=== PATIENT | male | born 1945 ===

== ENCOUNTER 2016-12-31 22:25 | Inpatient (IN) | payer BC ==
--- NOTE | 2016-12-31 22:43 | ED PDOC ---
Arrival/HPI - General Chief Complaint: Chest Pain Time Seen by Provider: 12/31/16 22:38 Historian: Patient - History of Present Illness Narrative History of Present Illness (Text): 12/31/16 22:43 Stephanie Mac is a 71 year old male, whose past medical history includes hypothyroidism, who presents to the Emergency department accompanied by family complaining of chest pain. Patient states he was sitting down reading at home 30 minutes prior to arrival when he began experiencing mid-sternal chest pain radiating to his back and bilateral arms. Patient denies any fever, chills, shortness of breath, nausea, vomiting, diarrhea, urinary symptoms, back pain, neck pain, headache, dizziness, or any other complaints. Time/Duration: 1/2 hour Symptom Onset: Sudden Symptom Course: Unchanged Activities at Onset: Rest, Light Context: Home Past Medical History - Provider Review Nursing Documentation Reviewed: Yes - Infectious Disease Hx of Infectious Diseases: None - Cardiac Hx Cardiac Disorders: No - Pulmonary Hx Respiratory Disorders: No - Neurological Hx Neurological Disorder: No - HEENT Hx HEENT Disorder: No - Renal Hx Renal Disorder: No - Endocrine/Metabolic Hx Hypothyroidism: Yes - Hematological/Oncological Hx Blood Disorders: No - Integumentary Hx Dermatological Disorder: No - Musculoskeletal/Rheumatological Hx Musculoskeletal Disorders: No - Gastrointestinal Hx Gastroesophageal Reflux: Yes - Genitourinary/Gynecological Hx Genitourinary Disorders: No - Psychiatric Hx Psychophysiologic Disorder: No Hx Substance Use: No - Anesthesia Hx Anesthesia: No Hx Anesthesia Reactions: No Hx Malignant Hyperthermia: No Family/Social History - Physician Review Nursing Documentation Reviewed: Yes Family/Social History: No Known Family HX Smoking Status: Unknown If Ever Smoked Hx Alcohol Use: No Hx Substance Use: No Allergies/Home Meds Allergies/Adverse Reactions: Allergies No Known Allergies Allergy (Verified 12/31/16 22:30) Review of Systems - Physician Review All systems were reviewed & negative as marked: Yes - Review of Systems Constitutional: Normal. absent: Fevers Eyes: Normal ENT: Normal Respiratory: Normal. absent: SOB, Cough Cardiovascular: Chest Pain Gastrointestinal: Normal. absent: Abdominal Pain, Constipation, Diarrhea, Nausea, Vomiting Genitourinary Male: Normal. absent: Dysuria, Frequency, Hematuria, Urinary Output Changes Musculoskeletal: Normal. absent: Back Pain, Neck Pain Skin: Normal. absent: Rash Neurological: Normal. absent: Headache, Dizziness Endocrine: Diaphoresis Hemo/Lymphatic: Normal Psychiatric: Normal Physical Exam Vital Signs Reviewed: Yes Vital Signs Temp Pulse Resp BP Pulse Ox 01/01/17 02:08 56 L 18 137/80 95 01/01/17 00:46 66 18 148/78 99 12/31/16 22:25 98.4 F 64 15 186/84 H 97 Temperature: Afebrile Blood Pressure: Normal Pulse: Regular Respiratory Rate: Normal Appearance: Positive for: Well-Appearing, Non-Toxic, Comfortable Pain Distress: None Mental Status: Positive for: Alert and Oriented X 3 - Systems Exam Head: Present: Atraumatic, Normocephalic Pupils: Present: PERRL Extroacular Muscles: Present: EOMI Conjunctiva: Present: Normal Mouth: Present: Moist Mucous Membranes Neck: Present: Normal Range of Motion Respiratory/Chest: Present: Clear to Auscultation, Good Air Exchange. No: Respiratory Distress, Accessory Muscle Use Cardiovascular: Present: Regular Rate and Rhythm, Normal S1, S2. No: Murmurs Abdomen: Present: Normal Bowel Sounds. No: Tenderness, Distention, Peritoneal Signs Back: Present: Normal Inspection Upper Extremity: Present: Normal Inspection. No: Cyanosis, Edema Lower Extremity: Present: Normal Inspection. No: Edema Neurological: Present: GCS=15, CN II-XII Intact, Speech Normal Skin: Present: Warm, Dry, Normal Color. No: Rashes Psychiatric: Present: Alert, Oriented x 3, Normal Insight, Normal Concentration Medical Decision Making ED Course and Treatment: 12/31/16 22:43 Impression: 71 year old male complaining of chest pain 30 minutes prior to arrival. Plan: -- EKG -- Chest X-ray -- Labs, cardiac enzymes -- Reassess and disposition Prior Visits: Notes and results from previous visits were reviewed. Progress Notes: Reviewed EKG, sinus bradycardia at 53 bpm. No acute changes. 01/01/17 00:56 Reviewed radiology, Chest X-ray shows: Heart and mediastinum: The heart is mildly enlarged. Aorta is mildly uncoiled. Vascularity:There is mild vascular congestion. Lungs: There are patchy opacities at the lung bases left greater than right Pleural spaces: There no definite effusions. Bony structures: Bony structures are mildly osteopenic the degenerative change IMPRESSION: Mild cardiomegaly and vascular congestion; patchy opacities at the lung bases atelectasis and/or infiltrate. 04/06/17 02:[address] Perry, who is aware and agrees with plan. Accepts pt in to her service. Pt will go to Telemetry observation for chest pain. Pt is no acute distress. Discussed results plan and hospital admission plan with pt, who is aware and verbalizes understanding. - Lab Interpretations Lab Results: 01/01/17 10:57 01/01/17 09:00 Lab Results 01/01/17 11:19: POC Glucose (mg/dL) 89 01/01/17 10:57: WBC 6.8 D, RBC 4.67, Hgb 15.0, Hct 41.0 L, MCV 87.8, MCH 32.1, MCHC 36.6, RDW 12.5, Plt Count 268, MPV 8.7, Hemoglobin A1c 5.6, Troponin I 0.69 H* D, Triglycerides 72, Cholesterol 190, LDL Cholesterol Direct 114, HDL Cholesterol 41 01/01/17 09:00: Sodium 136, Potassium 4.6, Chloride 99, Carbon Dioxide 27, Anion Gap 15, BUN 12, Creatinine 0.7, Est GFR ( Amer) > 60, Est GFR (Non- Af Amer) > 60, Random Glucose 144 H, Calcium 9.2, Troponin I 0.92 H* D 12/31/16 22:46: WBC 9.1, RBC 4.39, Hgb 14.1, Hct 38.5 L, MCV 87.7, MCH 32.1, MCHC 36.6, RDW 12.4, Plt Count 306, MPV 9.2, PT 10.9, INR 1.01, APTT 23.9, Sodium 135, Potassium 3.2 L, Chloride 96 L, Carbon Dioxide 27, Anion Gap 15, BUN 16, Creatinine 0.8, Est GFR ( Amer) > 60, Est GFR (Non-Af Amer) > 60 , Random Glucose 105, Calcium 9.2, Total Bilirubin 0.8, AST 29, ALT 31, Alkaline Phosphatase 47, Lactate Dehydrogenase 465, Total Creatine Kinase 160, Troponin I < 0.01, Total Protein 7.6, Albumin 4.0, Globulin 3.6, Albumin/ Globulin Ratio 1.1 I have reviewed the lab results: Yes - RAD Interpretation Radiology Orders: 12/31/16 23:21 CHEST PORTABLE [RAD] Stat Seed Analyst: ED Physician, Radiologist - EKG Interpretation Interpreted by ED Physician: Yes Type: 12 lead EKG - Medication Orders Current Medication Orders: Aspirin (Ecotrin) 81 mg PO DAILY [facility] Last Admin: 01/02/17 10:07 Dose: 81 MG Atorvastatin Calcium (Lipitor) 40 mg PO DIN [facility] Last Admin: 01/01/17 20:09 Dose: 40 MG Levothyroxine Sodium (Synthroid) 50 mcg PO ACB [facility] Last Admin: 01/02/17 07:25 Dose: 50 MCG Lisinopril (Zestril) 5 mg PO DAILY [facility] Last Admin: 01/02/17 10:07 Dose: 5 MG MAR Pulse and Blood Pressure Document 01/02/17 10:07 RDS (Rec: 01/02/17 10:10 RDS [id number]) Pulse Pulse Rate (60-90) 63 Blood Pressure Blood Pressure (100/60-150/90) 130/60 Metoprolol Succinate (Toprol Xl) 25 mg PO BRK [facility] Last Admin: 01/02/17 07:25 Dose: 25 MG MAR Pulse and Blood Pressure Document 01/02/17 07:25 RDS (Rec: 01/02/17 07:26 RDS [id number]) Pulse Pulse Rate (60-90) 61 Blood Pressure Blood Pressure (100/60-150/90) 106/58 Pantoprazole Sodium (Protonix Ec Tab) 40 mg PO 0630 [facility] Last Admin: 01/02/17 05:53 Dose: 40 MG Discontinued Medications Aspirin (Aspirin) 325 mg PO ONCE STA Stop: 12/31/16 23:24 Last Admin: 12/31/16 23:57 Dose: 325 MG Aspirin (Aspirin) 325 mg PO STAT STA Stop: 01/01/17 12:04 Last Admin: 01/01/17 12:13 Dose: 325 MG Bacitracin (Bacitracin) 1 ea TOP ONCE ONE Stop: 01/01/17 14:04 Last Admin: 01/01/17 20:28 Dose: Bacitracin (Bacitracin) Confirm Administered Dose 1 ea .ROUTE .STK-MED ONE Stop: 01/01/17 16:53 Last Admin: 01/01/17 17:45 Dose: 1 EA Clopidogrel Bisulfate (Plavix) 300 mg PO STAT STA Stop: 01/01/17 11:34 Last Admin: 01/01/17 12:13 Dose: 300 MG Clopidogrel Bisulfate (Plavix) 300 mg PO STAT STA Stop: 01/01/17 12:04 Last Admin: 01/01/17 12:15 Dose: Clopidogrel Bisulfate (Plavix) 75 mg PO DAILY [facility] Last Admin: 01/02/17 10:07 Dose: 75 MG Fentanyl (Fentanyl) Confirm Administered Dose 100 mcg .ROUTE .STK-MED ONE Stop: 01/01/17 12:55 Last Admin: 01/01/17 13:26 Dose: 50 MCG Comments: Dr. Jazmyn Sainz adm. Fentanyl 50 mcg IV @ 1326 MAR Pain Assessment Document 01/01/17 13:26 KPA (Rec: 01/01/17 15:14 KPA [facility]) Pain Reassessment Is this a pain reassessment? No Sleep Is patient sleeping during reassessment? No Presence of Pain Presence of Pain Yes Heparin Sodium (Porcine) (Heparin) Confirm Administered Dose 10,000 units .ROUTE .STK-MED ONE Stop: 01/01/17 12:54 Last Admin: 01/01/17 13:36 Dose: 2,500 UNITS Comments: Dr. Jazmyn Sainz adm. Heaprin 2500 Units IA @ 1336 Nitroglycerin/Dextrose (Nitroglycerin 50 Mg/250 Ml D5w) Confirm Administered Dose 250 mls @ ud IV .STK-MED ONE Stop: 01/01/17 12:55 Last Admin: 01/01/17 13:36 Dose: 0.2 MG Comments: Dr. Jazmyn Sainz adm. Nitroglycerin 200 mcg IA @ 1336 eMAR Start Stop Document 01/01/17 13:36 KPA (Rec: 01/01/17 15:16 KPA [facility]) Intravenous Solution Start Date 01/01/17 Start Time 13:36 End Date 01/01/17 End time 13:36 Total Infusion Time 0 Heparin Sodium (Porcine) (Heparin 1000 Units/500 Ml Ns) Confirm Administered Dose 1,500 mls @ ud IV .STK-MED ONE Stop: 01/01/17 12:55 Last Admin: 01/01/17 20:28 Dose: Not Given Non-Admin Reason: Patient in Cardiology Sodium Chloride (Sodium Chloride 0.9%) 1,000 mls @ 100 mls/hr IV .Q10H [facility] Stop: 01/01/17 17:00 Last Admin: 01/01/17 14:15 Dose: 100 MLS/HR eMAR Start Stop Document 01/01/17 14:15 AE (Rec: 01/01/17 17:46 AE [id number]) Intravenous Solution Start Date 01/01/17 Start Time 14:15 End Date 01/02/17 End time 14:15 Total Infusion Time 1440 Iodixanol (Visipaque 320 Mg/Ml 200 Ml) Confirm Administered Dose 200 ml IV .STK- MED ONE Stop: 01/01/17 12:55 Last Admin: 01/01/17 20:29 Dose: Not Given Non-Admin Reason: Patient in Cardiology Lidocaine HCl (Lidocaine 2% 20ml Vial) Confirm Administered Dose 20 ml .ROUTE .STK-MED ONE Stop: 01/01/17 12:54 Last Admin: 01/01/17 20:29 Dose: Not Given Non-Admin Reason: Patient in Cardiology Lisinopril (Zestril) 5 mg PO DAILY [facility] Midazolam HCl (Versed Inj) Confirm Administered Dose 2 mg .ROUTE .STK-MED ONE Stop: 01/01/17 12:54 Last Admin: 01/01/17 13:26 Dose: 2 MG Comments: Dr. Jazmyn Sainz adm. Versed 1 mg @ 1326, an additional dose of Versed 1 mg IV was given @ 1332 Nitroglycerin (Nitro-Bid 2% Oint) 1 ea TOP ONCE STA Stop: 12/31/16 23:53 Last Admin: 01/01/17 00:06 Dose: 1 EA Potassium Chloride (K-Dur 20 Meq Er Tab) 40 meq PO STAT STA Stop: 01/01/17 00:59 Last Admin: 01/01/17 01:17 Dose: 40 MEQ Verapamil HCl (Verapamil Inj) Confirm Administered Dose 5 mg IVP .STK-MED ONE Stop: 01/01/17 12:54 Last Admin: 01/01/17 13:36 Dose: 2.5 MG Comments: Dr. Jazmyn Sainz adm. Verapamil 2.5 mg IA @ 1336 MAR Pulse and Blood Pressure Document 01/01/17 13:36 KPA (Rec: 01/01/17 15:17 KPA [id number]) Pulse Pulse Rate (60-90) 62 Blood Pressure Blood Pressure (100/60-150/90) 163/76 IVP Administration Document 01/01/17 13:36 KPA (Rec: 01/01/17 15:17 KPA [id number]) Charges for Administration # of IVP Administrations 1 - Scribe Statement The provider has reviewed the documentation as recorded by the Samsonibtay Tobar Provider Attestation: All medical record entries made by the Scribe were at my direction and personally dictated by me. I have reviewed the chart and agree that the record accurately reflects my personal performance of the history, physical exam, medical decision making, and the department course for this patient. I have also personally directed, reviewed, and agree with the discharge instructions and disposition. Disposition/Present on Arrival - Present on Arrival Any Indicators Present on Arrival: No History of DVT/PE: No History of Uncontrolled Diabetes: No Urinary Catheter: No History of Decub. Ulcer: No History Surgical Site Infection Following: None - Disposition Have Diagnosis and Disposition been Completed?: Yes Diagnosis: Chest pain Disposition: HOSPITALIZED Disposition Time: 02:03 Patient Plan: Observation Patient Problems: Current Active Problems Problem Status Diagnosed Chest pain Acute Condition: STABLE
[2016-12-31] MEDS ORDERED: Nitroglycerin 2% Ointment Foilpak UD TOP STA (23:52)
[2016-12-31 23:58] LABS: INR 1.01 (0.93-1.08); PARTIAL THROMBOPLASTIN TIME 23.9 Seconds (23.7-30.8)
[2017-01-01 00:05] LABS: HEMATOCRIT 38.5 % (42.0-52.0); MEAN CELL VOLUME 87.7 fL (80.0-105.0); MEAN CORPUSCULAR HEMOGLOBIN 32.1 pg (25.0-35.0); MEAN CORPUSCULAR HGB CONC 36.6 g/dl (31.0-37.0); MEAN PLATELET VOLUME 9.2 fl (7.0-11.0); RED CELL DISTRIBUTION WIDTH 12.4 % (11.5-14.5); WHITE BLOOD COUNT 9.1 10^3/ul (4.5-11.0)
[2017-01-01 00:11] LABS: ALB/GLOB RATIO 1.1 (1.1-1.8); ALKALINE PHOSPHATASE 47 U/L (38-133); ALT/SGPT 31 U/L (7-56); AST/SGOT 29 U/L (15-59); BILIRUBIN,TOTAL 0.8 mg/dL (0.2-1.3); BLOOD UREA NITROGEN 16 mg/dL (7-21); CALCIUM 9.2 mg/dL (8.4-10.5); CARBON DIOXIDE 27 mmol/L (21-33); CHLORIDE 96 mmol/L (98-107); GFR AFRICAN-AMERICAN > 60; GLUCOSE,RANDOM 105 mg/dL (70-110); POTASSIUM 3.2 mmol/L (3.6-5.0); SODIUM 135 mmol/L (132-148); TOTAL PROTEIN 7.6 g/dL (5.8-8.3)
[2017-01-01 00:25] LABS: TROPONIN I < 0.01 ng/mL
[2017-01-01] MEDS ORDERED: Potassium Chloride 20 mEq ER Tab PO STA (00:58)
[2017-01-01 04:13] VITALS: BMI 85469.5
[2017-01-01 09:33] LABS: BLOOD UREA NITROGEN 12 mg/dL (7-21); CALCIUM 9.2 mg/dL (8.4-10.5); CARBON DIOXIDE 27 mmol/L (21-33); CHLORIDE 99 mmol/L (98-107); GFR AFRICAN-AMERICAN > 60; GLUCOSE,RANDOM 144 mg/dL (70-110); POTASSIUM 4.6 mmol/L (3.6-5.0); SODIUM 136 mmol/L (132-148)
[2017-01-01 10:10] LABS: TROPONIN I 0.92 ng/mL
[2017-01-01] MEDS: Metoprolol Succinate 25 mg XL Tab PO SCH (10:53)
[2017-01-01] MEDS: Levothyroxine 50 MCG TAB PO SCH (10:54)
[2017-01-01 11:00] LABS: MEAN CELL VOLUME 87.8 fL (80.0-105.0); MEAN CORPUSCULAR HEMOGLOBIN 32.1 pg (25.0-35.0); MEAN CORPUSCULAR HGB CONC 36.6 g/dl (31.0-37.0); MEAN PLATELET VOLUME 8.7 fl (7.0-11.0); RED CELL DISTRIBUTION WIDTH 12.5 % (11.5-14.5); WHITE BLOOD COUNT 6.8 10^3/ul (4.5-11.0)
--- NOTE | 2017-01-01 11:04 | RAD ---
HISTORY: chest pain Gómez chest pain. Technique: Single view portable semi erect @ 23:35. COMPARISON: None. FINDINGS: LUNGS: No active pulmonary disease. PLEURA: No significant pleural effusion identified, no pneumothorax apparent. CARDIOVASCULAR: No radiographic findings to suggest acute or significant cardiovascular disease. OSSEOUS STRUCTURES: No significant abnormalities. VISUALIZED UPPER ABDOMEN: Normal. OTHER FINDINGS: None. IMPRESSION: No active disease.
[2017-01-01 11:09] LABS: CHOLESTEROL 190 mg/dL (130-200)
--- NOTE | 2017-01-01 12:41 | HP ---
HISTORY OF PRESENT ILLNESS: The patient is patient is a 71-year-old Colombian speaking who recently mo eugenio from [facility] 6 months ago. Does not have any regular doctor. The patient's states last nig ht he ate around 9:00, and around 10:00 he started to have epigastric discomfort and he felt flushed feeling going toward his chest. Did not vomit. Did feel sweaty and dizzy with mild shortness of solitario ath. No history of fever or chills. No nausea, vomiting. No cough or congestion. No rectal bleedi ng. PAST MEDICAL HISTORY: Significant for hypothyroidism only. ALLERGIES: Not allergic to any medications. MEDICATIONS AT HOME: He is on Synthroid 50 mcg daily. SOCIAL HISTORY: He is , lives with his . Denies alcohol use, however, socially he drinks and he used to smoke a lot, but quit a few years ago. REVIEW OF SYSTEMS: Currently, patient is feeling all right. PHYSICAL EXAMINATION: GENERAL: He is awake and alert, communicative. VITAL SIGNS: He is afebrile, pulse 97.4, pulse 53, respirations 18, blood pressure 119/72. LUNGS: Bilateral fair airflow, no rhonchi or crackle. HEART: S1, S2 audible. ABDOMEN: Soft, obese, nontender, no rebound, no guarding. NEUROLOGIC: The patient is awake and alert, communicative. LABORATORY DATA: WBC 6.8, hemoglobin 15, hematocrit 41, platelets 268. PT 10.9, INR 1.01, PTT 23.9. Chemistry: Sodium 136, potassium 4.6, chloride 99, CO2 27, BUN 12, creatinine 0.7, blood sugar 144 . LFTs are within normal limits. His troponin, first one was 0.01, followup was 0.92, and third is 0.69. X-ray chest is unremarkable. Two sets of troponin positive. ASSESSMENT: 1. Non-ST elevation myocardial infarction. 2. History of smoking in the past. 3. History of hypothyroidism. 4. History of smoking in the past. PLAN: The patient is being seen by Dr. Sainz and arrangements for catheterization is being made. Aft er catheterization, will make further decision. He has been started on beta fadi, aspirin and Keena vix. Will reevaluate the patient in a.m. Lokesh Prery MD cc: [phone] TT: 01/01/2017 12:39:50 rn
[2017-01-01] MEDS ORDERED: Midazolam 2 MG/2 ML VIAL ONE (12:53)
[2017-01-01] MEDS ORDERED: Lidocaine 2% Inj (20ml) ONE (12:53)
[2017-01-01] MEDS ORDERED: Nitroglycerin 50mg in D5W 250 ML IV ONE (12:54)
[2017-01-01] MEDS ORDERED: Iodixanol 320 MG/ML 200 ML BOTTLE IV ONE (12:54)
--- NOTE | 2017-01-01 13:44 | CON ---
DATE: 01/01/2017 REASON FOR CONSULTATION AND FOLLOWUP: [id number] myocardial infarction, coronary artery disease. BRIEF CLINICAL HISTORY: This is a 71-year-old Mozambican speaking male, recently moved from [place] 6 months ago, off and on smoker, a pack a day, recently quit, then started again and then quit again. Admitted with complaint of sharp chest pain, epigastric pain going to the chest. EKG shows hyperacut e T waves and the first troponin was 0.02, repeat troponin 0.92, so cardiology consult was called for [id number] myocardial infarction. The patient denies any chest pain now. PAST MEDICAL HISTORY: Significant for hypertension, taking high blood pressure medication, name unkn own. SOCIAL HISTORY: Denies any smoking now, but he used to smoke off and on half a pack to 1 pack, quit 10 years ago, then restarted, then quit again 6 months ago, again quit. Denies any history of alcoho l abuse. PAST SURGICAL HISTORY: Nothing significant. FAMILY HISTORY: Significant for sudden cardiac in father at the age of 55. CURRENT MEDICATIONS: Hypertensive medication, name unknown. ALLERGIES: No known drug allergies. REVIEW OF SYSTEMS: As per HPI. PHYSICAL EXAMINATION: VITAL SIGNS: Temperature afebrile, heart rate 58, blood pressure 126/76. HEENT: PERRLA. Extraocular muscles intact. NECK: Supple. No carotid bruits. No thyromegaly. CHEST: Clear to auscultation. HEART: S1, S2 regular. ABDOMEN: Soft. EXTREMITIES: Clubbing, cyanosis negative. EKG shows normal sinus with hyperacute T waves noted in V1, V2. BLOOD WORKUP: WBC 6.8, hemoglobin 15, hematocrit 41.0, platelet count 268. Chemistry shows sodium 1 36, potassium 4.6, chloride 99, carbon dioxide 27, anion gap of 15, BUN 12, creatinine 0.7. First tr oponin 0.01, second troponin 0.92, 0.69. IMPRESSION: Acute [id number] myocardial infarction, coronary artery disease, hyperacute T waves, most likely unstable angina, [id number] myocardial infarction, diabetes, blood sugar 144, active tobacco abuse. RECOMMENDATION: Risks, benefits, alternatives discussed with the patient through a Mozambican speaking nurse, Verenice, explained the patient about the cardiac catheterization. We will proceed for cardiac c atheterization. We will give 300 mg of Plavix and aspirin. Further recommendation after cardiac cat heterization. is at the bedside. We will add on the lipid profile, TSH, and hemoglobin A1c in the blood. We will follow with you. Thank you, Dr. Perry, for providing us the opportunity in taking care of the patient. Also, get th e echo. Nikia Sainz MD cc: [phone] TT: 01/01/2017 13:43:43 Confirmation # [id number] Dictation # [id number]
[2017-01-01] MEDS ORDERED: Bacitracin 500 Units/gm Oint Foilpak UD TOP ONE (14:03)
[2017-01-01] MEDS ORDERED: Sodium Chloride 0.9% 1,000 ML IV SCH (14:15)
[2017-01-01] MEDS ORDERED: Bacitracin 500 Units/gm Oint Foilpak UD ONE (16:52)
--- NOTE | 2017-01-01 18:04 | CARD ---
APPROVED REPORT EKG Measurement Heart [id number] ND [id number] <Conclusion> Sinus bradycardia Otherwise normal ECG
--- NOTE | 2017-01-01 18:32 | CARD ---
APPROVED REPORT Procedure(s) performed: Left Heart Catheterization HISTORY The patient is a 71 year-old male with a history of : tobacco history() , hypertension , dyslipidemia , family history of premature CAD . INDICATION The indication(s) include : non-STEMI . CASE TECHNIQUE The patient was brought urgently to the Cardiac Catheterization Laboratory in a fasting state and was prepped and draped in a sterile manner. The left wrist was infiltrated with 2% Lidocaine subcutaneous anesthesia. A 6 Fr Glidesheath (Radial) sheath was inserted into the left radial artery without difficulty. Coronary angiography was performed using coronary diagnostic catheters. The left coronary system was accessed and visualized with a Diagnostic ,JL 4,5FR catheter. The right coronary system was accessed and visualized with a Diagnostic ,Jr,3.5,5FR catheter. The left ventricle was accessed and visualized with a Pigtail tail catheter. Left ventricular/Aortic Valve gradient assessed on pullback. Left ventriculogram was performed in WADDELL projection. Closure device was deployed with a Fr TR Band (Regular) without any complications. The patient tolerated the procedure well and there were no complications associated with the procedure. Vessel Analysis The patient's coronary anatomy is co-dominant. The left main coronary artery is a large size vessel with intimal irregularities. The left main bifurcates to the left anterior descending and circumflex. The left anterior descending artery is a medium size vessel with diffuse calcification noted throughout this vessel and with significant stenosis. There is a 50-60% stenosis in the mid segment. very tortous segment with possible a small ulcerated plaque not suitable for PCI The first diagonal branch is a small size vessel without significant stenosis. The second diagonal branch is a small size vessel with intimal irregularities and without significant stenosis. The third diagonal branch is a small size vessel with intimal irregularities and without significant stenosis. The circumflex artery is a large size vessel with intimal irregularities and without significant stenosis. The first obtuse marginal branch is a small size vessel with intimal irregularities and without significant stenosis. The second obtuse marginal branch is a small size vessel with intimal irregularities and without significant stenosis. The third obtuse marginal branch is a medium size vessel with diffuse calcification noted throughout this vessel and without significant stenosis. The right coronary artery is a medium size vessel with intimal irregularities and without significant stenosis. The right posterior descending artery is a medium size vessel with diffuse calcification noted throughout this vessel and without significant stenosis. Left Ventricle The left ventricle is npormal in size with normal contractility. There was no cardiomyopathy. The left ventricular ejection fraction is estimated to be 65%. The left ventricular end diastolic pressure is 15 mmHg. There was no gradient across the aortic valve upon pullback. Conclusion Non Obstructive CAD, Limited to Mid LAD 55-60% in a very tortous segment with possible a small ulcerated plaque not suitable for PCI ( b/c of tortousity and small calibre vessel) Recommendations Smoking Cessation Aggressive Medical Therapy ASA and plavix for one month, then Baby ASa alone. Statin and beta fadi, CC; Dr. Perry
[2017-01-02 05:21] VITALS: RESP 20; O2SAT 94
[2017-01-02] MEDS ORDERED: Pantoprazole 40 mg EC Tab PO SCH (06:30)
[2017-01-02] MEDS: Levothyroxine 50 MCG TAB PO SCH (07:25)
[2017-01-02] MEDS: Metoprolol Succinate 25 mg XL Tab PO SCH (07:25)
[2017-01-02 07:28] LABS: ADD MANUAL DIFF? NO
[2017-01-02 07:39] LABS: BASO # 0.02 K/mm3 (0.0-2.0); BASO % 0.4 % (0.0-3.0); EOS # 0.1 (0.0-0.7); EOS % 1.7 % (1.5-5.0); GRAN # 3.67 (1.4-6.5); GRAN % 70.3 % (50.0-68.0); HEMATOCRIT 40.9 % (42.0-52.0); LYMPH # 1.2 (1.2-3.4); LYMPH % 22.4 % (22.0-35.0); MEAN CELL VOLUME 88.1 fL (80.0-105.0); MEAN CORPUSCULAR HEMOGLOBIN 31.7 pg (25.0-35.0); MEAN CORPUSCULAR HGB CONC 35.9 g/dl (31.0-37.0); MEAN PLATELET VOLUME 9.3 fl (7.0-11.0); MONO # 0.3 (0.1-0.6); MONO % 5.2 % (1.0-6.0); PLATELET COUNT 263 10^3/uL (120.0-450.0); RED CELL DISTRIBUTION WIDTH 12.6 % (11.5-14.5); WHITE BLOOD COUNT 5.2 10^3/ul (4.5-11.0)
[2017-01-02 07:53] LABS: ALB/GLOB RATIO 1.1 (1.1-1.8); ALKALINE PHOSPHATASE 47 U/L (38-133); ALT/SGPT 36 U/L (7-56); AST/SGOT 28 U/L (15-59); BILIRUBIN,TOTAL 1.1 mg/dL (0.2-1.3); BLOOD UREA NITROGEN 14 mg/dL (7-21); CALCIUM 9.1 mg/dL (8.4-10.5); CARBON DIOXIDE 27 mmol/L (21-33); CHLORIDE 98 mmol/L (98-107); GFR AFRICAN-AMERICAN > 60; GLUCOSE,RANDOM 87 mg/dL (70-110); PHOSPHOROUS 3.6 mg/dL (2.5-4.5); POTASSIUM 4.3 mmol/L (3.6-5.0); SODIUM 133 mmol/L (132-148); TOTAL PROTEIN 7.4 g/dL (5.8-8.3)
[2017-01-02 08:18] LABS: THYROID STIMULATING HORMONE 4.56 mIU/mL (0.46-4.68)
[2017-01-02 12:25] VITALS: BP 128/69; PULSE 50; TEMP 98.1
--- NOTE | 2017-01-02 16:35 | DS ---
The patient is a 71-year-old, seen and examined, lying in bed, comfortable. No chest pain, no shortn ess of breath, no nausea, vomiting, no diarrhea, no fever, no chills. PHYSICAL EXAMINATION: VITAL SIGNS: He is afebrile, pulse 50, respirations 20, blood pressure 128/69. LUNGS: Bilateral good airflow, no rhonchi or crackle. HEART: S1, S2 audible. No murmur. ABDOMEN: Soft, nontender, no rebound, no guarding. NEUROLOGIC: He is awake and alert, communicative. Had cardiac cath done, nonocclusive coronaries and was advised for optimized medical treatment. ASSESSMENT: 1. Noncardiac chest pain. 2. Hypertension. 3. Hyperlipidemia. 4. Hypothyroidism. PLAN: The patient is being discharged home on aspirin 81 daily. There is no need for Plavix. Gave him a small dose of metoprolol and Protonix, and he will follow up in office next week. Lokesh Perry MD cc: [phone] TT: 01/02/2017 16:35:36 rn
--- NOTE | 2017-01-02 18:40 | CARD ---
APPROVED REPORT EXAM: Two-dimensional and M-mode echocardiogram with Doppler and color Doppler. INDICATION Chest Pain Non STEMI 2D DIMENSIONS Left Atrium (2D)3.8 (1.6-4.0cm)IVSd1.0 (0.7-1.1cm) LVDd4.6 (3.9-5.9cm)PWd1.1 (0.7-1.1cm) LVDs2.9 (2.5-4.0cm)FS (%) 37.9 % LVEF (%)68.1 (>50%) M-Mode DIMENSIONS Aortic Root2.70 (2.2-3.7cm)Aortic Cusp Exc.1.60 (1.5-2.0cm) Aortic Valve AoV Peak Jgkwjxnu745.0cm/Andrea Peak GR.8mmHg Mitral Valve MV E Cieackxc70.2cm/sMV A Umgdsnac60.8cm/sE/A ratio0.8 TDI E/Lateral E'0.0E/Medial E'0.0 Tricuspid Valve TR Peak [id number]/sRAP [id number] Peak Gr.29mmHg [id number] LEFT VENTRICLE The left ventricle is normal size. There is borderline concentric left ventricular hypertrophy. The left ventricular function is normal.EF-65% There is normal LV segmental wall motion. Transmitral Doppler flow pattern is Grade III-reversible restrictive diastolic dysfunction. No left ventricle thrombus noted on this study. There is no ventricular septal defect visualized. There is no left ventricular aneurysm. There is no mass noted in the left ventricle. RIGHT VENTRICLE The right ventricle is normal size. There is normal right ventricular wall thickness. The right ventricular systolic function is normal. ATRIA The left atrium size is normal. The right atrium size is normal. The interatrial septum is intact with no evidence for an atrial septal defect. AORTIC VALVE The aortic valve is thickened but opens well. There is trace to mild aortic regurgitation. There is no aortic valvular stenosis. There is no aortic valvular vegetation. MITRAL VALVE The mitral valve is thickened but opens well. Mitral regurgitation is mild to moderate. There is no mitral valve stenosis. There is no evidence of mitral valve prolapse. TRICUSPID VALVE The tricuspid valve leaflets are thickened , but open well. There is mild to moderate tricuspid regurgitation. There is no tricuspid valve stenosis. There is no tricuspid valve prolapse or vegetation. PULMONIC VALVE The pulmonic valve is mildly thickened. There is mild pulmonic valvular regurgitation. There is no pulmonic valvular stenosis. GREAT VESSELS The aortic root is normal in size. The ascending aorta is normal in size. The pulmonary artery is normal. The IVC is normal in size and collapses >50% with inspiration. PERICARDIAL EFFUSION There is no pleural effusion. There is no pericardial effusion. <Conclusion> Npomal chamber Size. EF-65% Mild to Moderate MR/TR
--- NOTE | 2017-01-02 20:24 | PN ---
DATE: 01/02/2017 REASON FOR CONSULTATION: [id number] myocardial infarction, coronary artery disease, nonobstructi ve, status post catheterization, nonobstructive coronary artery disease. BRIEF CLINICAL HISTORY: A 71-year-old [place]ian speaking male who recently moved from [place] 6 month s ago. Often a smoker. Yesterday, the patient came in with chest pain. Hyperacute cardiac ca theterization that revealed a mid LAD 55% to 60% stenosis with 30 small ulcerative plaque. No other significant hemodynamic flow-limiting stenosis noted. Preserved LV function, ejection fraction prese rved at 55%, EDP was in the range of 15. Denies any chest pain, shortness of breath, any palpitation . PHYSICAL EXAMINATION: VITAL SIGNS: Temperature afebrile, heart rate 50, blood pressure 120/60. HEENT: PERRLA. Extraocular muscles intact. NECK: Supple. No carotid bruits. No thyromegaly. CHEST: Clear to auscultation. HEART: S1, S2 regular. ABDOMEN: Soft. EXTREMITIES: Clubbing and cyanosis negative. LABORATORY DATA: Blood workup as follows: WBC 5.8, hemoglobin 14.7, hematocrit 40.9, platelet count 263. Chemistry shows sodium 130, potassium 4.790, carbon dioxide 27, anion gap of 12, BUN 14, creat inine 0.8, TSH 4.56. IMPRESSION: Positive [id number] myocardial infarction, positive troponin 0.9-0.69. Repeat trend ing down. Status post cardiac catheterization, nonobstructive coronary artery disease limited only t o LAD mid of 55, ulcerative plaque, preserved left ventricular function, ejection fraction EDP, ejection fraction 55% to 60%, EDP within the range of 15. RECOMMENDATIONS: Continue baby aspirin. Continue beta-fadi 25 mg twice a day. Continue lisinopr il, continue atorvastatin. We will follow with you. Thank you, Dr. Perry, for providing the opportunity in taking care of the patient Roman lock. We will discontinue telemetry. Nikia Sainz MD cc: [id number] TT: 01/02/2017 20:24:29 Confirmation # [id number] Dictation # [id number]
== END 2017-01-02 17:00 | disposition home or self-care (01) | DRG 282 ==
LOC: EDSEX → ED 22:25 → ERH 01-01 01:19 → 2RSO 01-01 02:37 → OBSVTOIN 01-01 13:21
PROVIDERS: ADMIT Internal Medicine; ATTEND Internal Medicine
PROC: 4A023N7 Measurement of Cardiac Sampling and Pressure, Left Heart, Percutaneous Approach (ICD-10-PCS; principal; 2017-01-01)
PROC: B2051ZZ Plain Radiography of Left Heart using Low Osmolar Contrast (ICD-10-PCS; 2017-01-01)
PROC: B2011ZZ Plain Radiography of Multiple Coronary Arteries using Low Osmolar Contrast (ICD-10-PCS; 2017-01-01)
DX: I21.4 Non-ST elevation (NSTEMI) myocardial infarction (principal); I25.110 Atherosclerotic heart disease of native coronary artery with unstable angina pectoris; I11.9 Hypertensive heart disease without heart failure; E11.9 Type 2 diabetes mellitus without complications; E78.5 Hyperlipidemia, unspecified; E03.9 Hypothyroidism, unspecified; F17.210 Nicotine dependence, cigarettes, uncomplicated; Z82.49 Family history of ischemic heart disease and other diseases of the circulatory system